=== PATIENT | male | born 1995 | race Caucasian/White ===

== ENCOUNTER 2025-02-19 17:09 | Emergency (ER) | payer OTHER, MEDICAID, SELFPAY ==
[2025-02-19 18:01] VITALS: BP 138/89; PULSE 88; RESP 18; TEMP 36.9; O2SAT 99; BMI 26.5
--- NOTE | 2025-02-19 18:14 | XR_ITS ---
Examination: Abdomen sonogram, Limited Date and time of exam: February 19, 2025 1820 hours INDICATIONS: Epigastric pain and intermittent vomiting blood 2 months Technique: Real-time trejo scale transabdominal sonographic images of the upper abdomen obtained. Findings: Multiple gallstones Gallbladder wall 0.3 cm no edema Common bile duct at 0.3 cm Pancreatic head 2.9 cm Liver 16.8 cm fatty infiltration Normal hepatopedal portal venous on Patent IVC 18 mm upper pole right renal cyst IMPRESSION: Cholelithiasis, negative for cholecystitis Mild hepatomegaly fatty liver
--- NOTE | 2025-02-19 18:14 | PD.EDABDPN ---
ED Abdominal Pain E/HPI General Chief Complaint: Abdominal Pain Stated complaint: ABDOMINAL PAIN WITH BLOOD Time seen by provider: 02/19/25 17:21 Arrival date/time: 02/19/25 17:09 RME / HPI RME / HPI narrative: 29-year-old male patient came in for evaluation regarding epigastric pain. Patient's been having epigastric pain for 1 to 2 months, described as burning-like sensation, severity moderate. In the morning sometimes patient spit blood streaks saliva. Patient denies any dizziness. Denies any cough denies any other complaints. Patient drinks alcohol on a regular basis. Related Data Previous Rx's ?Medication ?Instructions ?Recorded dicyclomine 20 mg tablet 20 mg PO BID PRN abdominal pain 02/19/25 #20 tabs pantoprazole 40 mg tablet,delayed 40 mg PO QDAY #14 tabs 02/19/25 release (Protonix) Allergies Allergy/AdvReac Type Severity Reaction Status Date / Time No Known Allergies Allergy Verified 02/19/25 17:15 Review of Systems Review of Systems Narrative Review of Systems: Review of system reviewed and within normal limits except mentioned in HPI ED Exam Narrative Physical exam: VITAL SIGNS: Reviewed. GENERAL APPEARANCE: Alert and interactive, follows commands, no acute distress, HEAD AND FACE: Non-traumatic. ENT: PERRL, pink conjunctivitis, eyelid no trauma, Mucous membrane moist. NECK: Supple, nontender, no nuchal rigidity. CHEST: No tenderness, no crepitus, no paradoxical movement, no retractions. LUNGS: Clear, well ventilated, symmetric, no rales, no wheezing, no ronchi, no stridor, good breath sounds bilaterally. HEART: Regular rate, regular rhythm, no murmur, no gallops. ABDOMEN: Soft, positive bowel sounds, nondistended, no guarding, nontender, no rebound, no masses, RECTAL: Deferred. GENITAL: Deferred. NEUROLOGICAL: Gross motor function intact sensory function intact, Appropriate for age. MUSCULOSKELETAL: low back nontender, full range of motion. EXTREMITIES: Nontender, full range of motion. SKIN: Color pink, dry, no rash, no lacerations, no abrasions, no contusions. LYMPHATICS: Deferred. Course Quality Measures none Orders Category Date Time Status US gall bladder Stat Exams 02/19/25 18:14 Completed Pantoprazole [Protonix] Med 02/19/25 18:17 Discontinued 40 mg PO X1 ONE Vital Signs Vital signs: Vital Signs Temperature 98.5 F 02/19/25 18:01 Pulse Rate 88 02/19/25 18:01 Respiratory Rate 18 02/19/25 18:01 Blood Pressure 138/89 H 02/19/25 18:01 Pulse Oximetry (%) 99 02/19/25 18:01 Oxygen Delivery Method Room Air 02/19/25 18:01 Abdominal Pain [facility] Narrative [facility] Narrative:: Patient's ultrasound showed cholelithiasis with no sign of acute cholecystitis. Prior to discharge patient is not having any pain. Patient told me that he will go to his PCP tomorrow regarding his ultrasound results. Laboratory workup is not needed at this time. Patient not showing any sign of jaundice, or infection. Patient data External records reviewed:: None Clinical information provided by:: patient Social determinants that could affect healthcare access:: none Patient has the following chronic illnesses:: None How is presenting disease/condition affected by chronic disease/condition?: no chronic disease Evaluation data The following diagnostics were reviewed and interpreted by me:: radiology exam(s) Lab and/or radiology exams considered but not ordered:: None Interpretation Summary: See results in MDM Medications / Prescriptions Medications or Prescriptions considered but not ordered:: None Medication administrations:: Medication Administration History Discontinued Medications Pantoprazole Sodium (Pantoprazole 40 Mg Tablet) 40 mg PO X1 ONE Stop: 02/19/25 18:18 Last Admin: 02/19/25 18:48 Dose: 40 mg Documented By: Protonix Consultations Consultation(s) initiated? (list below): No Diagnosis Differential diagnosis abdominal pain: abdominal pain and other (Gallstone, acute cholecystitis) Most likely diagnosis given after review of the tests above:: Gallstone Admission Indicated Admission indicated?: not indicated Admission Request Was there a request for admission?: No Disposition Plan Disposition Plan: Discharge Discharge Attestation Discharge Attestation: The patient was given an opportunity to ask questions and understood the discharge instructions. Discharge instructions specifically effects, indications for sooner follow up or return to the emergency department, and the expected course of current diagnosis. Patient condition: Stable Discharge Plan Plan Patient Disposition: HOME (Self Care) Disposition Comment: Stable Prescriptions/Referrals Prescriptions/Med Rec: New pantoprazole [Protonix] 40 mg tablet,delayed release (DR/EC) 40 mg PO QDAY Qty: 14 0RF dicyclomine 20 mg tablet 20 mg PO BID PRN (Reason: abdominal pain) Qty: 20 0RF Referrals: Carina Quiroga PA-C [Primary Care Provider] - In 1 week Problem List Clinical Impression: Gallstone Patient/Caregiver Discharge Instructions Discharge Activity: activity as tolerated Education Materials: Treating Gallstones Additional Instructions: Thank you for the opportunity for serving you today. You are stable for discharged . You are advised to: Follow-up with your PCP in 1 to 2 days as your PCP to refer you to a general surgeon Return to ED for worsening of symptoms Increase oral fluids Take medication as prescribed Please avoid eating fatty, greasy food. Please avoid drinking alcohol Print Language: Bengali Stand Alone Forms: Lana Award Info., Patient Portal Info Letter MOHINDER/JEANNINE Supervising Physician ROBERT Supervising Physician: MD Christel
[2025-02-19] MEDS: PANTOPRAZOLE 40 MG TABLET PO (18:48)
== END 2025-02-19 20:20 | disposition home or self-care (01) ==
PROVIDERS: Emergency Provider Emergency Medicine; PCP Physician Assistant
DX: K80.20 Calculus of gallbladder without cholecystitis without obstruction (principal)
CPT/HCPCS: 76705; 99284; A9270